=== PATIENT | female | born 1950 | race African-American/Black ===

== ENCOUNTER 2018-07-11 12:18 | Inpatient (IN) | payer OTHER ==
[~2018-07-11] VITALS: Ht 180.3 cm; Wt 69.4 kg
[~2018-07-11 12:18] MED LIST: FOLI-43 PO
[2018-07-11 14:01] LABS: HEMATOCRIT. 39.8 % (36.0-48.0); HEMOGLOBIN. 13.7 g/dL (12.0-16.0); MEAN CORPUSCULAR HEMOGLOBIN 35.1 pg (28.0-32.0); MEAN CORPUSCULAR VOLUME 101.4 fL (81.0-99.0); PLATELET 110 x1000/uL (130-400); RED BLOOD CELL COUNT 3.92 mill/uL (4.2-5.4); RED CELL DISTRIBUTION WIDTH 13.8 % (11.6-14.6)
[2018-07-11 14:07] LABS: CHLORIDE 96 mEq/L (98-107)
[2018-07-11 14:14] LABS: ETHANOL BLOOD < 10 mg/dL
[2018-07-11 14:38] LABS: PLATELET ESTIMATE DECREASED
[2018-07-11 16:36] LABS: CLARITY URINE CLOUDY (CLEAR); COLOR URINE DARK YELLOW (YELLOW); KETONES URINE 1+ (NEGATIVE); LEUKOCYTE ESTERASE URINE 3+ (NEGATIVE); NITRITE URINE NEGATIVE (NEGATIVE); OCCULT BLOOD URINE NEGATIVE (NEGATIVE); PROTEIN URINE TRACE (NEGATIVE); SPECIFIC GRAVITY URINE 1.019 (1.005-1.030)
[2018-07-11] MEDS ORDERED: CEFTRIAXONE 1 G PREMIX 50 ML IV ONE (17:00)
[2018-07-11 17:32] LABS: *AMPHETAMINES SCREEN URINE NEGATIVE (NEGATIVE); *BARBITURATES SCREEN URINE NEGATIVE (NEGATIVE); *BENZODIAZEPINES SCREEN URINE NEGATIVE (NEGATIVE); *COCAINE SCREEN URINE NEGATIVE (NEGATIVE)
[2018-07-11 17:33] LABS: CANNABINOID URINE SCREEN NEGATIVE (NEGATIVE); OPIATES URINE SCREEN NEGATIVE (NEGATIVE); PHENCYCLIDINE URINE SCREEN NEGATIVE (NEGATIVE)
[2018-07-11 17:40] LABS: METHADONE URINE SCREEN NEGATIVE (NEGATIVE)
[2018-07-12] VITALS: BP 160/93
[2018-07-12] MEDS ORDERED: ACETAMINOPHEN 325MG TABLET PO PRN (00:45)
[2018-07-12 04:00] VITALS: BP 118/50
[2018-07-12 08:00] VITALS: BP 136/71
[2018-07-12] MEDS ORDERED: CEFTRIAXONE 1 G PREMIX 50 ML IV SCH (09:00)
[2018-07-12] MEDS: ENOXAPARIN 40MG/0.4ML SYR SUBCUT SCH (09:13)
[2018-07-12 09:19] LABS: CHLORIDE 99 mEq/L (98-107)
[2018-07-12] MEDS ORDERED: POTASSIUM CHLORIDE 20MEQ TABLET SR PO NR ×2 (11:15→16:15)
[2018-07-12 12:00] VITALS: BP 134/78
[2018-07-12] MEDS ORDERED: FOLIC ACID 1 MG, THIAMINE HCL 100 MG, MVI, ADULT NO.1 10 ML in DEXTROSE 5% WATER 1,000 ML IV NR ×4 (15:00)
[2018-07-12 16:00] VITALS: BP 143/84
[2018-07-12] MEDS ORDERED: CEFTRIAXONE 2 G in DEXTROSE 5% WATER 50 ML IV SCH (17:00)
[2018-07-12 19:13] LABS: CHLORIDE 100 mEq/L (98-107)
[2018-07-12 19:45] LABS: VITAMIN B12 SERUM 426 pg/mL (211-911)
[2018-07-12 20:00] VITALS: BP 144/76
[2018-07-13] MEDS: ENOXAPARIN 40MG/0.4ML SYR SUBCUT SCH (08:23)
== END 2018-07-13 09:35 | disposition left against medical advice (07) | DRG 682 ==
LOC: ER 12:18 → 8WST 17:09 → EDBEDREQTM 17:11 → EDBEDREQ 17:11 → ENRESERV 22:49
PROVIDERS: ADMIT Internal Medicine; ATTEND Internal Medicine
DX: N17.9 Acute kidney failure, unspecified (principal); G93.41 Metabolic encephalopathy; N39.0 Urinary tract infection, site not specified; D53.9 Nutritional anemia, unspecified; F10.20 Alcohol dependence, uncomplicated; Z53.21 Procedure and treatment not carried out due to patient leaving prior to being seen by health care provider; F17.200 Nicotine dependence, unspecified, uncomplicated; E86.0 Dehydration; E87.6 Hypokalemia; I10 Essential (primary) hypertension; Z91.19 Patient's noncompliance with other medical treatment and regimen; Z90.710 Acquired absence of both cervix and uterus
CPT/HCPCS: 36415; 70486; 70551; 80048; 80305; 82140; 82607; 83735; 84443; 96365; 99285; G0482; J0696; J1650; J3411; J3490; J7060; J7070

== ENCOUNTER 2019-04-26 09:06 | Emergency (ER) | payer MEDICARE, OTHER ==
[~2019-04-26] VITALS: Ht 167.6 cm; Wt 72.0 kg
[2019-04-26 14:04] VITALS: BP 130/74
== END 2019-04-26 14:17 | disposition home or self-care (01) ==
LOC: ER 09:39
DX: S22.31XA Fracture of one rib, right side, initial encounter for closed fracture (principal); R51 Headache; F10.20 Alcohol dependence, uncomplicated; Z90.710 Acquired absence of both cervix and uterus; Y04.0XXA Assault by unarmed brawl or fight, initial encounter; Y93.89 Activity, other specified; Y92.89 Other specified places as the place of occurrence of the external cause; Y99.8 Other external cause status; Y90.9 Presence of alcohol in blood, level not specified
CPT/HCPCS: 70486; 71101; 74176; 99284

== ENCOUNTER 2022-01-09 09:14 | Inpatient (IN) | payer MEDICARE, OTHER ==
[~2022-01-09] VITALS: Ht 172.7 cm; Wt 83.9 kg
[2022-01-09] MEDS ORDERED: IOHEXOL-350 100 ML BOTTLE ONE (09:58)
[2022-01-09 10:19] LABS: BASOPHILS % 0.7 % (0.0-2.0); EOSINOPHILS % 0.1 % (0.0-5.0); HEMATOCRIT. 34.2 % (36.0-48.0); HEMOGLOBIN. 11.3 g/dL (12.0-16.0); LYMPHOCYTES % 10.5 % (20.0-50.0); MEAN CORPUSCULAR VOLUME 87.5 fL (81.0-99.0); MEAN PLATELET VOLUME 10.3 fl (7.4-10.4); MONOCYTES % 7.2 % (2.0-8.0); NEUTROPHILS % 81.5 % (40.0-76.0); PLATELET 254 x1000/uL (130-400); RED BLOOD CELL COUNT 3.91 mill/uL (4.2-5.4); RED CELL DISTRIBUTION WIDTH 12.6 % (11.6-14.6)
[2022-01-09 10:33] LABS: CHLORIDE 97 mEq/L (98-107)
[2022-01-09 10:40] LABS: ETHANOL BLOOD < 10 mg/dL
[2022-01-09] MEDS ORDERED: SODIUM CHLORIDE 0.9% 1,000 ML IV ONE (11:15)
[2022-01-09 11:27] LABS: CLARITY URINE CLEAR (CLEAR); COLOR URINE YELLOW (YELLOW); KETONES URINE NEGATIVE (NEGATIVE); LEUKOCYTE ESTERASE URINE 2+ (NEGATIVE); NITRITE URINE NEGATIVE (NEGATIVE); OCCULT BLOOD URINE NEGATIVE (NEGATIVE); PH URINE 5.5 (4.5-8.0); PROTEIN URINE NEGATIVE (NEGATIVE); SPECIFIC GRAVITY URINE 1.032 (1.005-1.030); UROBILINOGEN URINE 0.2 E.U./dL (0.2-1.0)
[2022-01-09] MEDS ORDERED: SODIUM CHLORIDE 0.9% 1000ML BAG (SEPSIS BOLUS) IV ONE (12:15)
[2022-01-09] MEDS ORDERED: CEFTRIAXONE 1 G PREMIX 50 ML IV ONE (12:15)
[2022-01-09 12:19] LABS: *AMPHETAMINES SCREEN URINE NEGATIVE (NEGATIVE); *BARBITURATES SCREEN URINE NEGATIVE (NEGATIVE); *BENZODIAZEPINES SCREEN URINE NEGATIVE (NEGATIVE); *COCAINE SCREEN URINE NEGATIVE (NEGATIVE); CANNABINOID URINE SCREEN NEGATIVE (NEGATIVE); METHADONE URINE SCREEN NEGATIVE (NEGATIVE); OPIATES URINE SCREEN NEGATIVE (NEGATIVE); PHENCYCLIDINE URINE SCREEN NEGATIVE (NEGATIVE)
[2022-01-09] MEDS ORDERED: CLONIDINE 0.1MG TABLET PO PRN (18:30)
[2022-01-09] MEDS ORDERED: ACETAMINOPHEN 325MG TABLET PO PRN ×2 (23:15)
[2022-01-09] MEDS ORDERED: DOCUSATE SODIUM 100MG CAPSULE PO PRN (23:15)
[2022-01-09] MEDS ORDERED: GUAIFENESIN 200MG/10ML SUGAR FREE UDC PO PRN (23:15)
[2022-01-09] MEDS ORDERED: ZOLPIDEM TARTRATE 5MG TABLET PO PRN (23:15)
[2022-01-09] MEDS ORDERED: ONDANSETRON HCL 4MG/2ML INJ IV PRN (23:15)
[2022-01-09] MEDS ORDERED: IPRATROPIUM/ALBUTEROL 0.5-3(2.5)MG/3ML NEB NEB PRN (23:15)
[2022-01-09] MEDS ORDERED: KETOROLAC 15MG/ML VIAL IV PRN (23:15)
[2022-01-09] MEDS ORDERED: NITROGLYCERIN 0.4MG TABLET SL SL PRN (23:15)
[2022-01-09] MEDS ORDERED: MAGNESIUM/ALUMINUM HYDROXIDE/SIMETHICONE 30ML UDC PO PRN (23:15)
[2022-01-09] MEDS ORDERED: LEVOFLOXACIN 500MG PREMIX 100 ML IV NR (23:30)
[2022-01-09] MEDS ORDERED: PAMIDRONATE DISODIUM 90 MG in SODIUM CHLORIDE 0.9% 1,000 ML IV ONE (23:45)
[2022-01-10 00:16] LABS: T4 FREE 1.35 ng/dL (0.76-1.46)
[2022-01-10 00:31] LABS: VITAMIN B12 SERUM 921 pg/mL (211-911)
[2022-01-10 00:41] LABS: FOLIC ACID (FOLATE) SERUM > 20.00 ng/mL (>5.38)
[2022-01-10] MEDS: CLONIDINE 0.1MG TABLET PO PRN ×2 (00:51→12:39)
[2022-01-10] MEDS: SODIUM CHLORIDE 0.9% 1,000 ML IV SCH ×3 (00:51→19:30)
[2022-01-10 04:53] VITALS: BP 153/66
[2022-01-10 06:09] VITALS: BP 153/66
[2022-01-10 08:00] VITALS: BP 164/71
[2022-01-10] MEDS: FAMOTIDINE 20MG TABLET PO SCH (08:59)
[2022-01-10] MEDS: ENOXAPARIN 40MG/0.4ML SYR SUBCUT SCH (08:59)
[2022-01-10] MEDS: ASPIRIN 325MG EC TABLET PO SCH (08:59)
[2022-01-10 09:37] LABS: BASOPHILS % 0.6 % (0.0-2.0); EOSINOPHILS % 0.8 % (0.0-5.0); HEMATOCRIT. 36.8 % (36.0-48.0); HEMOGLOBIN. 12.3 g/dL (12.0-16.0); LYMPHOCYTES % 16.1 % (20.0-50.0); MEAN CORPUSCULAR HEMOGLOBIN 29.5 pg (28.0-32.0); MEAN CORPUSCULAR VOLUME 88.5 fL (81.0-99.0); MEAN PLATELET VOLUME 10.4 fl (7.4-10.4); MONOCYTES % 8.1 % (2.0-8.0); NEUTROPHILS % 74.4 % (40.0-76.0); PLATELET 272 x1000/uL (130-400); RED BLOOD CELL COUNT 4.16 mill/uL (4.2-5.4); RED CELL DISTRIBUTION WIDTH 12.8 % (11.6-14.6)
[2022-01-10 09:57] LABS: CHLORIDE 106 mEq/L (98-107)
[2022-01-10 10:06] LABS: PHOSPHORUS 1.9 mg/dL (2.5-4.9)
[2022-01-10 12:00] VITALS: BP 183/72
[2022-01-10] MEDS ORDERED: MAGNESIUM 2 G PREMIX 50 ML IV NR (14:00)
[2022-01-10] MEDS ORDERED: POTASSIUM PHOS,M-BASIC-D-BASIC 20 MMOL in DEXT 5% WATER 243.3333 ML IV NR (14:30)
[2022-01-10 16:00] VITALS: BP 132/61
[2022-01-10 20:00] VITALS: BP 156/78
[2022-01-10] MEDS ORDERED: LEVOFLOXACIN 250MG PREMIX 50 ML IV SCH (21:00)
[2022-01-11] VITALS: BP 144/72
[2022-01-11 04:00] VITALS: BP 147/76
[2022-01-11] MEDS: SODIUM CHLORIDE 0.9% 1,000 ML IV SCH ×2 (06:04→17:30)
[2022-01-11 08:00] VITALS: BP 152/74
[2022-01-11] MEDS: FAMOTIDINE 20MG TABLET PO SCH (09:54)
[2022-01-11] MEDS: ASPIRIN 325MG EC TABLET PO SCH (09:54)
[2022-01-11] MEDS: ENOXAPARIN 40MG/0.4ML SYR SUBCUT SCH (09:54)
[2022-01-11 11:47] LABS: BASOPHILS % 0.3 % (0.0-2.0); EOSINOPHILS % 0.4 % (0.0-5.0); HEMOGLOBIN. 12.8 g/dL (12.0-16.0); LYMPHOCYTES % 10.9 % (20.0-50.0); MEAN CORPUSCULAR HEMOGLOBIN 29.9 pg (28.0-32.0); MEAN CORPUSCULAR VOLUME 86.9 fL (81.0-99.0); MEAN PLATELET VOLUME 10.7 fl (7.4-10.4); MONOCYTES % 6.3 % (2.0-8.0); NEUTROPHILS % 82.1 % (40.0-76.0); PLATELET 282 x1000/uL (130-400); RED BLOOD CELL COUNT 4.26 mill/uL (4.2-5.4); RED CELL DISTRIBUTION WIDTH 12.7 % (11.6-14.6)
[2022-01-11 12:00] VITALS: BP 142/66
[2022-01-11 12:53] LABS: PHOSPHORUS 2.2 mg/dL (2.5-4.9)
[2022-01-11] MEDS ORDERED: POTASSIUM-SODIUM PHOSPHATE POWDER PACKET PO NR (15:30)
[2022-01-11 16:00] VITALS: BP 147/86
[2022-01-11] MEDS ORDERED: LEVOFLOXACIN 250MG PREMIX 50 ML IV SCH (21:45)
[2022-01-13 15:07] LABS: A/G RATIO 0.7 (0.7-1.7); ALBUMIN 2.6 g/dL (2.9-4.4); ALPHA-1-GLOBULIN 0.4 g/dL (0.0-0.4); BETA GLOBULIN 1.2 g/dL (0.7-1.3); GAMMA GLOBULINS 1.1 g/dL (0.4-1.8); GLOBULIN TOTAL 3.6 g/dL (2.2-3.9); M-SPIKE Not Observed g/dL (Not Observed); TOTAL PROTEIN SERUM 6.2 g/dL (6.0-8.5)
== END 2022-01-12 00:32 | disposition short-term general hospital (02) | DRG 91 ==
LOC: ER 09:14 → MICUSO 22:48 → EDBEDREQ 22:58 → EDBEDREQSVC 22:58 → EDBEDREQTM 22:58 → SUPCPDRO 23:03 → 7WST 01-10 05:15
PROVIDERS: ADMIT Internal Medicine; ATTEND Internal Medicine
DX: G92.8 Other toxic encephalopathy (principal); E43 Unspecified severe protein-calorie malnutrition; N17.0 Acute kidney failure with tubular necrosis; N39.0 Urinary tract infection, site not specified; E87.1 Hypo-osmolality and hyponatremia; C79.51 Secondary malignant neoplasm of bone; D63.8 Anemia in other chronic diseases classified elsewhere; E83.39 Other disorders of phosphorus metabolism; E83.52 Hypercalcemia; C80.1 Malignant (primary) neoplasm, unspecified; E83.42 Hypomagnesemia; E87.6 Hypokalemia; E87.8 Other disorders of electrolyte and fluid balance, not elsewhere classified; R26.89 Other abnormalities of gait and mobility; Z20.822 Contact with and (suspected) exposure to COVID-19; R73.9 Hyperglycemia, unspecified; F10.10 Alcohol abuse, uncomplicated; Y90.9 Presence of alcohol in blood, level not specified; Z68.28 Body mass index [BMI] 28.0-28.9, adult; Z90.710 Acquired absence of both cervix and uterus; Z79.82 Long term (current) use of aspirin
CPT/HCPCS: 36415; 70496; 70498; 71045; 80048; 80053; 80061; 80305; 80320; 81003; 82607; 82746; 82962; 83036; 83540; 83550; 83605; 83735; 83970; 84100; 84155; 84165; 84439; 84443; 85025; 87426; 93005; 99291; J0696; J1650; J1885; J1956; J2430; J3475; J3490; J7030; J7060; Q9967; A4315; G0480